=== PATIENT | female | born 1975 | race Two or more races ===

== ENCOUNTER 2024-04-12 21:34 | Emergency (ER) | payer MEDICAID ==
[~2024-04-12] VITALS: Ht 160 cm; Wt 100.0 kg
[2024-04-12 21:50] VITALS: BP 129/74; PULSE 73; RESP 18; O2SAT 97
== END 2024-04-13 00:21 | disposition home or self-care (01) ==
LOC: ER 21:34
DX: T16.1XXA Foreign body in right ear, initial encounter (principal); W44.9XXA Unspecified foreign body entering into or through a natural orifice, initial encounter; Y93.89 Activity, other specified; Y92.89 Other specified places as the place of occurrence of the external cause; Y99.8 Other external cause status